=== PATIENT | male | born 1975 | race Caucasian/White ===

== ENCOUNTER 2019-04-07 13:52 | Emergency (ER) | payer BC, SELFPAY ==
--- NOTE | 2019-04-07 14:50 | RAD REPORT ---
EXAM DESCRIPTION: RAD - Knee Right 3 View - 04/07/2019 2:45 pm CLINICAL HISTORY: PAIN COMPARISON: No comparisons FINDINGS: Mild arthritic changes are seen involving the medial compartment. No fracture, dislocation or joint effusion.
--- NOTE | 2019-04-07 14:51 | RAD REPORT ---
EXAM DESCRIPTION: RAD - Knee Left 3 View - 04/07/2019 2:45 pm CLINICAL HISTORY: PAIN COMPARISON: No comparisons FINDINGS: Mild medial compartment space narrowing is seen. No fracture, dislocation or significant j oint effusion.
--- NOTE | 2019-04-07 15:30 | EDPHYS ---
Physician Documentation [facility] Name: Saad Hopper Age: 44 yrs Sex: Male : 1975 Arrival Date: 04/07/2019 Time: 13:57 Bed 12 Private MD: ED Physician Dale Trejo HPI: 04/07 14:04 This 44 yrs old Male presents to ER via Ambulatory with complaints of Knee jmm Pain. 14:04 The patient presents with pain. Onset: The symptoms/episode began/occurred gradually, 1 jmm month(s) ago. Modifying factors: The symptoms are alleviated by nothing. the symptoms are aggravated by nothing. This is a 44 year old male with a history of chronic pain that presents to the ED with complaints of bilateral knee pain ongoing for the best month. Denies injury. Denies fever. States knees occasionally swell. 14:04 Associated signs and symptoms: Pertinent negatives fever. jmm Historical: - Allergies: 14:01 No Known Allergies; sv - PMHx: 14:01 Chronic pain; herniated discs; sv - PSHx: 14:01 None; sv - Immunization history:: Adult Immunizations up to date. - Social history:: Smoking status: Patient uses tobacco products, smokes one pack cigarettes per day. - Ebola Screening: : No symptoms or risks identified at this time. ROS: 14:04 Constitutional: Negative for fever, chills, and weight loss, Cardiovascular: Negative jmm for chest pain, palpitations, and edema, Respiratory: Negative for shortness of breath, cough, wheezing, and pleuritic chest pain. 14:04 MS/extremity: Positive for pain, swelling. 14:04 All other systems are negative. Exam: 14:04 Constitutional: This is a well developed, well nourished patient who is awake, alert, jmm and in no acute distress. Head/Face: atraumatic. Eyes: EOMI, no conjunctival erythema appreciated ENT: Moist Mucus Membranes Neck: Trachea midline, Supple Chest/axilla: Normal chest wall appearance and motion. Cardiovascular: Regular rate and rhythm. No edema appreciated Respiratory: Normal respirations, no respiratory distress appreciated Abdomen/GI: Non distended, soft Back: Normal ROM Skin: General appearance color normal 14:04 Musculoskeletal/extremity: FROM appreciated to both knees bilaterally, mild tenderness on palpation of the anterior knees bilaterally, no swelling appreciated, compartments soft, NVI. 14:04 Skin: Appearance: Color: normal in color. 14:04 Neuro: Orientation: is normal, Mentation: is normal, Memory: is normal. 14:04 Psych: Behavior/mood is pleasant, cooperative. Vital Signs: 14:01 BP 129 / 90; Pulse 81; Resp 16; Temp 98.1; Pulse Ox 98% ; Weight 113.4 kg; Height 6 ft. sv 1 in. (185.42 cm); Pain 5/10; 14:01 Body Mass Index 32.98 (113.40 kg, 185.42 cm) sv MDM: 14:04 Patient medically screened. [facility] 15:28 Data reviewed: vital signs, nurses notes. Counseling: I had a detailed discussion with kvng the patient and/or guardian regarding: the historical points, exam findings, and any diagnostic results supporting the discharge/admit diagnosis, the need for outpatient follow up, to return to the emergency department if symptoms worsen or persist or if there are any questions or concerns that arise at home. 04/07 14:18 Order name: Knee Right 3 View XRAY; Complete Time: 14:59 [facility] 04/07 14:18 Order name: Knee Left 3 View XRAY; Complete Time: 14:59 [facility] Administered Medications: No medications were administered Disposition: 04/08 06:43 Co-signature as Attending Physician, Dale Trejo MD I agree with the assessment and [facility] plan of care. Disposition: 04/07/19 15:29 Discharged to Home. Impression: Pain in unspecified knee. - Condition is Stable. - Discharge Instructions: Knee Pain. - Prescriptions for Ibuprofen 800 mg Oral Tablet - take 1 tablet by ORAL route every 8 hours As needed take with food; 30 tablet. - Medication Reconciliation Form, Thank You Letter, Antibiotic Education, Prescription Opioid Use form. - Follow up: Orville Tesfaye MD; When: 2 - 3 days; Reason: Recheck today's complaints, Continuance of care, Re-evaluation by your physician. Signatures: Dispatcher [employer] Mary Ward, Dale Pimentel RN, MD MD cha Mickail, Joel, PA PA [facility] Corrections: (The following items were deleted from the chart) 04/07 15:56 15:29 04/07/2019 15:29 Discharged to Home. Impression: Pain in unspecified knee. sv Condition is Stable. Forms are Medication Reconciliation Form, Thank You Letter, Antibiotic Education, Prescription Opioid Use. Follow up: Dr. Orville Tesfaye; When: 2 - 3 days; Reason: Recheck today's complaints, Continuance of care, Re-evaluation by your physician. kvng 21:25 14:04 This is a 44 year old male with a history of chronic pain that presents to the ED yesy with comp. kvng
--- NOTE | 2019-04-07 15:30 | ER ---
Nurse's Notes [facility] Name: Saad Hopper Age: 44 yrs Sex: Male : 1975 Arrival Date: 04/07/2019 Time: 13:57 Bed 12 Private MD: Diagnosis: Pain in unspecified knee Presentation: 04/07 14:00 Presenting complaint: Patient states: bilateral knee pain for month, right >left. Pt sv goes up and down stairs. Transition of care: patient was not received from another setting of care. Onset of symptoms is unknown. Risk Assessment: Do you want to hurt yourself or someone else? Patient reports no desire to harm self or others. Initial Sepsis Screen: Does the patient meet any 2 criteria? No. Patient's initial sepsis screen is negative. Does the patient have a suspected source of infection? No. Patient's initial sepsis screen is negative. Care prior to arrival: None. 14:00 Method Of Arrival: Ambulatory sv 14:00 Acuity: PAYAL 4 sv Historical: - Allergies: 14:01 No Known Allergies; sv - PMHx: 14:01 Chronic pain; herniated discs; sv - PSHx: 14:01 None; sv - Immunization history:: Adult Immunizations up to date. - Social history:: Smoking status: Patient uses tobacco products, smokes one pack cigarettes per day. - Ebola Screening: : No symptoms or risks identified at this time. Screenin:05 Abuse screen: Denies threats or abuse. Denies injuries from another. Nutritional sv screening: No deficits noted. Tuberculosis screening: No symptoms or risk factors identified. Fall Risk None identified. Assessment: 14:05 General: Appears in no apparent distress. comfortable, well developed, Behavior is sv calm, cooperative, appropriate for age. Pain: Complains of pain in right knee and left knee Pain currently is 5 out of 10 on a pain scale. Is chronic. Neuro: Level of Consciousness is awake, alert, obeys commands, Oriented to person, place, time, situation, Moves all extremities. Full function Gait is steady. Respiratory: Respiratory effort is even, unlabored, Respiratory pattern is regular, symmetrical. Derm: Skin is pink, warm \T\ dry. Musculoskeletal: Range of motion: intact in all extremities. 15:56 Reassessment: Patient appears in no apparent distress at this time. No changes from sv previously documented assessment. Patient and/or family updated on plan of care and expected duration. Pain level reassessed. Patient is alert, oriented x 3, equal unlabored respirations, skin warm/dry/pink. Vital Signs: 14:01 BP 129 / 90; Pulse 81; Resp 16; Temp 98.1; Pulse Ox 98% ; Weight 113.4 kg; Height 6 ft. sv 1 in. (185.42 cm); Pain 5/10; 14:01 Body Mass Index 32.98 (113.40 kg, 185.42 cm) sv ED Course: 13:57 Patient arrived in ED. mr 14:01 Triage completed. sv 14:02 Arm band placed on. sv 14:04 Chilo Juárez PA is PHCP. [facility] 14:04 Dale Trejo MD is Attending Physician. [facility] 14:05 Patient has correct armband on for positive identification. Call light in reach. Door sv closed. 14:46 Knee Right 3 View XRAY In Process Unspecified. EDMS 14:46 Knee Left 3 View XRAY In Process Unspecified. EDMS 15:29 Orville Tesfaye MD is Referral Physician. [facility] 15:56 No provider procedures requiring assistance completed. Patient did not have IV access sv during this emergency room visit. Administered Medications: No medications were administered Outcome: 15:29 Discharge ordered by . [facility] 15:56 Patient left the ED. sv 15:56 Discharged to home ambulatory. sv 15:56 Condition: stable 15:56 Discharge instructions given to patient, Instructed on discharge instructions, follow up and referral plans. medication usage, Demonstrated understanding of instructions, follow-up care, medications, Prescriptions given X 1. Signatures: Dispatcher [employer] Mary Ward, RN RN Chilo Juárez PA PA jmm Jean-Paul Princess mr
[2019-04-07 16:12] VITALS: BP 129/90; TEMP 98.1; O2SAT 98
== END 2019-04-07 15:56 | disposition home or self-care (01) ==
LOC: ER 13:52
DX: M25.562 Pain in left knee (principal); M25.561 Pain in right knee; F17.210 Nicotine dependence, cigarettes, uncomplicated
CPT/HCPCS: 99283

== ENCOUNTER 2019-04-19 13:42 | Emergency (ER) | payer BC ==
--- NOTE | 2019-04-19 14:29 | EDPHYS ---
Physician Documentation [facility] Name: Saad Hopper Age: 44 yrs Sex: Male : 1975 Arrival Date: 04/19/2019 Time: 13:45 Bed 27 Private MD: ED Physician Agapito Woo HPI: 04/19 14:24 This 44 yrs old Male presents to ER via Ambulatory with complaints of jmm Toothache. 14:24 The patient presents with broken tooth/teeth, pain. Onset: The symptoms/episode jmm began/occurred gradually, 2 day(s) ago. Duration: The symptoms are continuous, and are steadily getting worse. Modifying factors: The symptoms are alleviated by nothing, the symptoms are aggravated by cold fluids, food, hot fluids. Associated signs and symptoms: Pertinent negatives: fever. This is a 44 year old male with a history of chronic pain that presents to the ED with complaints of dental pain which began after breaking a tooth. Complains of increased pain over the next 2 days. Denies fever. Denies swelling. Historical: - Allergies: 14:00 No Known Allergies; tw2 - Home Meds: 14:00 None [Active]; tw2 - PMHx: 14:00 Chronic pain; herniated discs; tw2 - PSHx: 14:00 None; tw2 - Immunization history:: Adult Immunizations. - Social history:: Smoking status: Smoking status: Patient uses tobacco products, smokes one pack cigarettes per day. - Ebola Screening: : Patient denies exposure to infectious person Patient denies travel to an Ebola-affected area in the 21 days before illness onset. ROS: 14:24 Constitutional: Negative for fever, chills, and weight loss, Cardiovascular: Negative jmm for chest pain, palpitations, and edema, Respiratory: Negative for shortness of breath, cough, wheezing, and pleuritic chest pain. 14:24 ENT: Positive for dental pain. 14:24 All other systems are negative. Exam: 14:24 Constitutional: This is a well developed, well nourished patient who is awake, alert, jmm and in no acute distress. Head/Face: atraumatic. Eyes: EOMI, no conjunctival erythema appreciated 14:24 Neck: Trachea midline, Supple Chest/axilla: Normal chest wall appearance and motion. Cardiovascular: Regular rate and rhythm. No edema appreciated Respiratory: Normal respirations, no respiratory distress appreciated Abdomen/GI: Non distended, soft Back: Normal ROM Skin: General appearance color normal MS/ Extremity: Moves all extremities, no obvious deformities appreciated, no edema noted to the lower extremities Neuro: Awake and alert, normal gait Psych: Behavior is normal, Mood is normal, Patient is cooperative and pleasant 14:24 ENT: Dental exam: dental caries, that is severe, specifically in the upper left central incisor (#9), upper left lateral incisor (#10), upper left cuspid (#11) and upper left first bicuspid (#12). Vital Signs: 14:00 BP 142 / 98; Pulse 89; Resp 17; Temp 97.8(TE); Pulse Ox 98% on R/A; Weight 111.13 kg tw2 (R); Height 6 ft. 1 in. (185.42 cm) (R); Pain 8/10; 14:00 Body Mass Index 32.32 (111.13 kg, 185.42 cm) tw2 MDM: 14:19 Patient medically screened. [facility] 14:24 Data reviewed: vital signs, nurses notes. Counseling: I had a detailed discussion with tayler the patient and/or guardian regarding: the historical points, exam findings, and any diagnostic results supporting the discharge/admit diagnosis, the need for outpatient follow up, to return to the emergency department if symptoms worsen or persist or if there are any questions or concerns that arise at home. ED course: Patient is alert and non toxic in appearance in the ED. Patient is advised to follow up with dentist and otherwise given strict return precautions. Patient understood and agrees with the plan of care. . Administered Medications: No medications were administered Disposition: 19:59 Co-signature as Attending Physician, Agapito Woo MD I agree with the assessment and tw4 plan of care. Disposition: 04/19/19 14:27 Discharged to Home. Impression: Dental caries. - Condition is Stable. - Discharge Instructions: Dental Caries, Adult, Dental Pain. - Prescriptions for Amoxicillin 875 mg Oral Tablet - take 1 tablet by ORAL route every 12 hours for 10 days; 20 tablet. - Medication Reconciliation Form, Thank You Letter, Antibiotic Education, Prescription Opioid Use, Work release form form. - Follow up: Private Physician; When: 2 - 3 days; Reason: Recheck today's complaints, Continuance of care, Re-evaluation by your physician. Signatures: Chilo Juárez PA PA jmm Wise, Tara RN RN tw2 Agapito Woo MD MD tw4 Victoria Mark, RN RN ca1 Corrections: (The following items were deleted from the chart) 14:37 14:27 04/19/2019 14:27 Discharged to Home. Impression: Dental caries. Condition is ca1 Stable. Forms are Work release form, Medication Reconciliation Form, Thank You Letter, Antibiotic Education, Prescription Opioid Use. Follow up: Private Physician; When: 2 - 3 days; Reason: Recheck today's complaints, Continuance of care, Re-evaluation by your physician. kvng
--- NOTE | 2019-04-19 14:29 | ER ---
Nurse's Notes [facility] Name: Saad Hopper Age: 44 yrs Sex: Male : 1975 Arrival Date: 04/19/2019 Time: 13:45 Bed 27 Private MD: Diagnosis: Dental caries Presentation: 04/19 13:58 Presenting complaint: Patient states: i have a horrible tooth ache, 3 days ago, then tw2 its come back, upper left, i have an appt in June to get my teeth taken out and get implants. Transition of care: patient was not received from another setting of care. Onset of symptoms was April 19, 2019. Risk Assessment: Do you want to hurt yourself or someone else? Patient reports no desire to harm self or others. Initial Sepsis Screen: Does the patient meet any 2 criteria? No. Patient's initial sepsis screen is negative. Does the patient have a suspected source of infection? No. Patient's initial sepsis screen is negative. Care prior to arrival: None. 13:58 Method Of Arrival: Ambulatory tw2 13:58 Acuity: PAYAL 4 tw2 Triage Assessment: 13:59 General: Appears in no apparent distress. Behavior is calm, cooperative, appropriate tw2 for age. Pain: Complains of pain in gums. EENT: Reports pain upper left teeth. Historical: - Allergies: 14:00 No Known Allergies; tw2 - Home Meds: 14:00 None [Active]; tw2 - PMHx: 14:00 Chronic pain; herniated discs; tw2 - PSHx: 14:00 None; tw2 - Immunization history:: Adult Immunizations. - Social history:: Smoking status: Smoking status: Patient uses tobacco products, smokes one pack cigarettes per day. - Ebola Screening: : Patient denies exposure to infectious person Patient denies travel to an Ebola-affected area in the 21 days before illness onset. Screenin:07 Abuse screen: Denies threats or abuse. Nutritional screening: No deficits noted. tw2 Tuberculosis screening: No symptoms or risk factors identified. Fall Risk None identified. Assessment: 14:13 General: Appears in no apparent distress. comfortable, Behavior is calm, cooperative. rv Pain: Complains of pain in mouth. Neuro: Level of Consciousness is awake, alert, obeys commands, Oriented to person, place, time, situation. Cardiovascular: Patient's skin is warm and dry. Respiratory: Airway is patent. GI: No signs and/or symptoms were reported involving the gastrointestinal system. : No signs and/or symptoms were reported regarding the genitourinary system. EENT: reports toothache. Derm: Skin is intact. Musculoskeletal: No signs and/or symptoms reported regarding the musculoskeletal system. Vital Signs: 14:00 BP 142 / 98; Pulse 89; Resp 17; Temp 97.8(TE); Pulse Ox 98% on R/A; Weight 111.13 kg tw2 (R); Height 6 ft. 1 in. (185.42 cm) (R); Pain 8/10; 14:00 Body Mass Index 32.32 (111.13 kg, 185.42 cm) tw2 ED Course: 13:45 Patient arrived in ED. mr 13:59 Triage completed. tw2 13:59 Arm band placed on. tw2 14:01 Bed in low position. Call light in reach. tw2 14:11 Chilo Juárez PA is PHCP. [facility] 14:13 Matthew Skinner, RN is Primary Nurse. rv 14:14 Agapito Woo MD is Attending Physician. [facility] 14:36 No provider procedures requiring assistance completed. Patient did not have IV access ca1 during this emergency room visit. Administered Medications: No medications were administered Outcome: 14:27 Discharge ordered by . [facility] 14:36 Discharged to home ambulatory. ca1 14:36 Condition: stable 14:36 Discharge instructions given to patient, Instructed on discharge instructions, follow up and referral plans. medication usage, Demonstrated understanding of instructions, follow-up care, medications, Prescriptions given X 1. 14:37 Patient left the ED. ca1 Signatures: Chilo Juárez PA PA jmm Rivera, Mary Criss Marc, RN RN tw2 Matthew Skinner RN RN Victoria Mark RN RN ca1 Corrections: (The following items were deleted from the chart) 14:37 14:36 Discharge instructions given to patient, Instructed on discharge instructions, ca1 follow up and referral plans. Demonstrated understanding of instructions, follow-up care, medications, ca1
== END 2019-04-19 14:37 | disposition home or self-care (01) ==
LOC: ER 13:42
DX: K02.9 Dental caries, unspecified (principal); F17.210 Nicotine dependence, cigarettes, uncomplicated
CPT/HCPCS: 99282